=== PATIENT | male | born 1955 | race Caucasian/White ===

== ENCOUNTER 2020-04-27 18:43 | Emergency (ER) | payer OTHER, MEDICARE ==
[~2020-04-27] VITALS: Ht 162.6 cm; Wt 81.6 kg
[2020-04-27 19:00] VITALS: BP_SYST 160
[2020-04-27] MEDS ORDERED: DIPH-TET-PERTUS Vaccine 0.5 ML VIAL (ADACEL) I.M. ONE (20:00)
[2020-04-27] MEDS ORDERED: BACITRACIN 1 GM OINT TP ONE (20:00)
[2020-04-27] MEDS ORDERED: CIPROFLOXACIN HCL 500 MG TABLET PO ONE (20:00)
[2020-04-27 20:40] VITALS: BP_SYST 160
== END 2020-04-27 20:40 | disposition home or self-care (01) ==
LOC: SED 18:43
DX: S91.332A Puncture wound without foreign body, left foot, initial encounter (principal); Z87.891 Personal history of nicotine dependence; W22.8XXA Striking against or struck by other objects, initial encounter; Y93.89 Activity, other specified; Y92.69 Other specified industrial and construction area as the place of occurrence of the external cause; Y99.8 Other external cause status
CPT/HCPCS: 90715; 99283

== ENCOUNTER 2022-01-14 12:08 | Inpatient (IN) | payer OTHER, MEDICARE ==
[~2022-01-14] VITALS: Ht 170.2 cm; Wt 81.6 kg
[2022-01-14 12:15] VITALS: BP_SYST 165
--- NOTE | 2022-01-14 12:15 | NUR ---
Pt to bed 6 for evaluation.
--- NOTE | 2022-01-14 12:20 | NUR ---
pt presented to the er via ambulance, patient passed out at home and hit the left side of his upper face/left orbital/forehead. patient has had 3 syncopy spells since last friday when he had cataract removal surgery. pt denies any pain. has been fasting for past 16 days for sikh purposes. checked blood glucose 177. vs within normal limits. pt in bed resting comfortably with bed lowered and locked, rails up.
--- NOTE | 2022-01-14 12:20 | NUR ---
Report given to GREG Gutierrez who will assume care.
--- NOTE | 2022-01-14 13:02 | NUR ---
Dr Carty at pt bedside
[2022-01-14] MEDS ORDERED: DIPH-TET-PERTUS Vaccine 0.5 ML VIAL (ADACEL) I.M. ONE (13:15)
[2022-01-14] MEDS ORDERED: NACL 0.9% 1,000 ML IV ONE (13:15)
--- NOTE | 2022-01-14 13:21 | NUR ---
Portable CXR done at bedside.
--- NOTE | 2022-01-14 13:46 | NUR ---
pt taken to ct
--- NOTE | 2022-01-14 14:00 | NUR ---
Pt back from CT scan.
--- NOTE | 2022-01-14 14:15 | NUR ---
# 20 gauge angiocath placed to left hand. Use of asceptic technique. Opsite placed over site. Blood return noted. Blood for lab drawn from site. Flushed with 10 cc of normal saline. No evidence of infiltration noted. Patient tolerated well.
--- NOTE | 2022-01-14 14:18 | NUR ---
EKG done at bedside. Results to Dr. Velez for interpretation.
[2022-01-14 14:28] LABS: BASOPHILS % (AUTO) 0.2 % (0.0-2.0); EOSINOPHILS # (AUTO) 0.1 K/uL (0.0-0.4); EOSINOPHILS % (AUTO) 1.5 % (0.0-4.0); HEMATOCRIT 41.5 % (36-54); HEMOGLOBIN 14.6 g/dL (14.0-18.0); LYMPHOCYTES # (AUTO) 1.2 K/uL (1.0-5.5); MEAN CORPUSCULAR HEMOGLOBIN 31 pg (27-31); MEAN CORPUSCULAR HGB CONC 35 % (32-36); MEAN CORPUSCULAR VOLUME 88 fL (79.0-98.0); MONOCYTES # (AUTO) 0.8 K/uL (0.0-1.0); MONOCYTES % (AUTO) 8.3 % (1.7-9.3); NEUTROPHILS # (AUTO) 7.6 K/uL (1.8-7.7); PLATELET COUNT (AUTO) 199 K/uL (130-430); RED BLOOD CELL COUNT(AUTO) 4.73 MIL/uL (4.2-6.2); RED CELL DISTRIBUTION WIDTH 13.6 % (9.0-15.0); WHITE BLOOD COUNT (AUTO) 9.7 K/uL (4.8-10.8)
[2022-01-14 14:41] LABS: ANION GAP 8 (5-15); CALCIUM 9.7 mg/dL (8.4-11.0); CHLORIDE 101 mmol/L (98-107); CREATININE 1.17 mg/dL (0.55-1.30); GLUCOSE 134 mg/dL (70-99); POTASSIUM 3.6 mmol/L (3.5-5.1); SODIUM SERUM 137 mmol/L (136-145); UREA NITROGEN, BLOOD 26 mg/dL (8-21)
[2022-01-14 14:42] LABS: GFR AFRICAN AMERICAN 80 mL/min (>90)
[2022-01-14 14:50] LABS: ALANINE AMINOTRANSFERASE 38 U/L (12-78); ALBUMIN 3.8 g/dL (3.4-4.8); ASPARTATE AMINOTRANSFERASE 23 U/L (10-37); TOTAL BILIRUBIN 0.2 mg/dL (0.0-1.0)
--- NOTE | 2022-01-14 16:00 | NUR ---
Pt resting quietly in no distresss awaiting disposition. Pt does not want to be admitted. Physician and family attempting to convince him to stay for an MRI tomorrow. Pt is still deciding if he is going to stay for admission. Waiting for the patients decision.
[2022-01-14] MEDS ORDERED: IOHEXOL 350 mgI/mL, 150 ML INFUS..BTL IV ONE (17:54)
--- NOTE | 2022-01-14 17:59 | NUR ---
Admission orders received from Dr. Herrera. Pt to be admitted to Tele for TIA.
[2022-01-14] MEDS ORDERED: INSULIN REGULAR, HUMAN 100 UNITS/ML, 10 ML VIAL (humuLIN R) SUBCUT PRN (18:00)
--- NOTE | 2022-01-14 18:13 | NUR ---
Covid swab obtained and sent to lab for analysis.
[2022-01-14] MEDS ORDERED: ASPIRIN 325 MG TABLET PO ONE (18:15)
--- NOTE | 2022-01-14 18:30 | NUR ---
Pt to CT scan by nora.
[2022-01-14] MEDS: NACL 0.9% 1,000 ML IV SCH (18:34)
--- NOTE | 2022-01-14 18:34 | NUR ---
Admit bed requested Patient will be admitted to care of . Admitted to telemetry unit. Diagnosis tia Inpatient (Yes or No) yes Orientation concerns or request close to nursing station (Yes or No) no Covid Status pending From Home (Yes or if No enter name of facility) home
--- NOTE | 2022-01-14 18:38 | NUR ---
Pt back from CT scan.
--- NOTE | 2022-01-14 19:00 | NUR ---
Note marquitaone in EDM - 01/14/22 at 1901 by MALKA Admit bed requested Patient will be admitted to care of . Admitted to TELE unit. Diagnosis TIA Inpatient (Yes or No) YES Observation (Yes or No) NO Orientation concerns or request close to nursing station (Yes or No) NO Covid Status NEG On vent or bipap NO Isolation requirements NO Needs a sitter NO From Home (Yes or if No enter name of facility) YES Requires Dialysis (Yes or No) NO Med Rec Completed (Yes of No) YES
--- NOTE | 2022-01-14 19:02 | NUR ---
completed personal belogings list. pt only has navy blue sweat pants and white v-neck undershirt. all other belogings where sent home by patient with his
--- NOTE | 2022-01-14 19:25 | NUR ---
gave report to Everton GARZA
--- NOTE | 2022-01-14 19:44 | NUR ---
Patient will be admitted to care of DR. Admitted to unit. Will go to room . Belongings list completed. Complete and up to date summary report printed. SBAR report to be given at bedside with opportunity for questions.
[2022-01-14 19:52] VITALS: BP_SYST 158
--- NOTE | 2022-01-14 20:14 | NUR ---
THIS IS AN ADMISSION OF A 66 YEAR OLD FEMALE PATIENT OF DOCTOR MURPHY FOR TIA. HE WILL BE SEEN BY NEUROLOGY. OF NOTE WAS A RECENT PRE EXISTING PRE DIABETES, HYPERTENSION AND HYPERLIPIDEMIA PLUS A CATARACT SURGERY. CA KELLER RN
[2022-01-15 01:48] VITALS: BP_SYST 140
[2022-01-15] MEDS: NACL 0.9% 1,000 ML IV SCH ×2 (05:46→19:00)
--- NOTE | 2022-01-15 07:23 | NUR ---
Handoff with patient day team registered nurse, Juany. Edgar Tolbetr RN
[2022-01-15 08:00] VITALS: BP_SYST 161
[2022-01-15] MEDS ORDERED: DORZ10DR10 LEFT EYE (09:57)
[2022-01-15] MEDS ORDERED: BROM3DRO RIGHT EYE (09:57)
[2022-01-15] MEDS ORDERED: PREDEYE1% RIGHT EYE (09:57)
[2022-01-15] MEDS ORDERED: LOSA1TAB40 PO (09:57)
[2022-01-15] MEDS ORDERED: MOXI3DRO13 RIGHT EYE (09:57)
[2022-01-15] MEDS ORDERED: ROSU20TA32 PO (09:57)
[2022-01-15] MEDS ORDERED: ATORVASTATIN 20 MG TABLET PO ONE (11:15)
[2022-01-15 12:00] VITALS: BP_SYST 146
[2022-01-15] MEDS ORDERED: LOSARTAN POTASSIUM 50 MG TABLET (COZAAR) PO ONE (12:00)
[2022-01-15] MEDS ORDERED: HYDROCHLOROTHIAZIDE 25 MG TABLET (HCTZ) PO ONE (12:00)
[2022-01-15] MEDS: MOXIFLOXACIN OP SCH ×3 (12:25→21:33)
[2022-01-15] MEDS: PROLENSA OP SCH (12:26)
[2022-01-15] MEDS: prednisoLONE 1% OPHTHALMIC SUSPN 5 ML OP SCH ×3 (12:26→21:16)
[2022-01-15] MEDS: DORZOLAMIDE HCL/TIMOLOL MAL. 10 ML EYE DROPS (COSOPT) LEFT EYE SCH (12:27)
[2022-01-15] MEDS ORDERED: MOXIFLOXACIN HCL RIGHT EYE SCH (13:00)
[2022-01-15] MEDS ORDERED: prednisoLONE 1% OPHTHALMIC SUSPN 5 ML OP SCH (13:00)
--- NOTE | 2022-01-15 14:33 | NUR ---
Dietitian Recommendations [facility], Low Fat diet. Please refer to nutrition assessment for details. Signed: 01/15/22 at 1435 by Lillian MCKEON <Co-Signature Required> Co-Signed: 01/15/22 at [address] Addendum: 01/15/22 at 1435 by Lillian MCKEON Amended: Links added.
[2022-01-15 16:00] VITALS: BP_SYST 158
[2022-01-16] VITALS (8 sets, daily range): BP systolic 131–197
--- NOTE | 2022-01-16 07:20 | NUR ---
OPENING NOTE Patient awake and sitting at bedside eating breakfast. No sign of distress, patient denies pain. Patient wants to know when he will receive is MRI exam so that he can go home. Updated patient on his plan of care for the day. IV is patent and running prescribed fluids. All needs met at this time and safety checks made. Will continue to monitor.
--- NOTE | 2022-01-16 07:29 | NUR ---
CLOSING NOTES: END OF SHIFT REPORT TO INCOMING NURSE. PT ASLEEP IN BED, FACIAL EXPRESSIONS RE;AXED AND CALM, NO SIGNS OF DISTRESS, PAIN OR DISCOMFORT. ALL DUE MEDS GIVEN, NO ASE. BS AT THIS TIME 115. IV FLUIDS INFUSING NO OCCLUSION. ALL SAFETY AND COMFORT MEASURES PROVIDED.
[2022-01-16] MEDS: NACL 0.9% 1,000 ML IV SCH (07:46)
[2022-01-16] MEDS: prednisoLONE 1% OPHTHALMIC SUSPN 5 ML OP SCH ×3 (08:53→17:17)
[2022-01-16] MEDS: PROLENSA OP SCH (08:54)
[2022-01-16] MEDS: MOXIFLOXACIN OP SCH ×3 (08:55→17:18)
[2022-01-16] MEDS: DORZOLAMIDE HCL/TIMOLOL MAL. 10 ML EYE DROPS (COSOPT) LEFT EYE SCH (08:56)
[2022-01-16] MEDS ORDERED: ATORVASTATIN 20 MG TABLET PO SCH (09:00)
[2022-01-16] MEDS ORDERED: BROMFENAC SODIUM RIGHT EYE SCH (09:00)
[2022-01-16] MEDS ORDERED: DORZOLAMIDE HCL/TIMOLOL MAL. 10 ML EYE DROPS (COSOPT) LEFT EYE SCH (09:00)
[2022-01-16] MEDS ORDERED: LOSARTAN POTASSIUM 50 MG TABLET (COZAAR) PO SCH (09:00)
[2022-01-16] MEDS ORDERED: HYDROCHLOROTHIAZIDE 25 MG TABLET (HCTZ) PO SCH (09:00)
--- NOTE | 2022-01-16 10:02 | NUR ---
PATIENT LEFT FOR MRI Patient left room with preventative maintenance technician for MRI via wheelchair in stable condition.
--- NOTE | 2022-01-16 10:55 | NUR ---
BACK FROM MRI Patient is back in room. IV replaced and infusing prescribed fluids. Safety checks made, will continue to monitor.
[2022-01-16] MEDS ORDERED: ASPI-1393 PO (11:00)
--- NOTE | 2022-01-16 13:39 | NUR ---
Discharge Planning: DCP faxed pt referral to [facility] P#[phone] DCP to follow up. Addendum: 01/16/22 at 1454 by Neelima Hairston DP DCP followed with at [facility] P#[phone] pt accepted
--- NOTE | 2022-01-16 14:59 | NUR ---
SPOKE TO MD Spoke to Dr Herrera and informed him of the patient's increased blood pressure. MD gave new orders. Patient is ok to be discharged home after he receives his bilateral carotid US and his BP is lowered.
[2022-01-16] MEDS ORDERED: lisinopriL 20 MG TABLET PO ONE (15:00)
--- NOTE | 2022-01-16 15:48 | NUR ---
CHANGE PRN BP MEDS: SPOKE WITH DR MURPHY WITH ORDERS TO GIVE CLONIDINE 0.2MG PO ONCE FOR SBP>160.DC HOME IF BP WITHIN NORMAL RANGE. Addendum: 01/16/22 at 1551 by Liz Rivera RN ADDED NOTES: DC HOME IF CAROTID US IS NORMAL WELL.
[2022-01-16] MEDS ORDERED: cloNIDine HCL 0.1 MG TABLET PO ONE (16:00)
[2022-01-16] MEDS ORDERED: cloNIDine HCL 0.2 MG TABLET PO PRN (16:15)
--- NOTE | 2022-01-16 18:22 | NUR ---
SPOKE TO MD Reported to MD that patient's BP is still elevated, 159/92, heart rate 88. New orders received. MD stated to discharge patient once his BP is within normal limits.
[2022-01-16] MEDS ORDERED: hydrALAZINE HCL 20 MG/ML VIAL IVP ONE (18:30)
--- NOTE | 2022-01-16 18:47 | NUR ---
CLOSING NOTE Patient resting in bed with at bedside. Patient is aware he will be discharged once his blood pressure lowers. Patient denies chest pain or numbness in his extremities. Patient has been able to ambulate with steady gait to the restroom. Patient states that he has already made an appointment to see his physician this friday. All needs met at this time, safety checks made. Will endorse to night club manager nurse.
--- NOTE | 2022-01-16 19:20 | NUR ---
VERBAL REPORT RECEIVED FROM CRISTIAN WILDE. ENDORSED HYDRALAZINE 5MG TO BE GIVEN FOR ELEVATED B/P 197/105, 178/101, AND LAST B/P 159/92/ AT BEDSIDE. PT MAY BE DISCHARGED WHEN B/P WITHIN DESIRED LIMITS, PER DR. MURPHY WITH F/U APPT. IN 2 WEEKS.
--- NOTE | 2022-01-16 19:44 | NUR ---
B/P BEFORE HYDRALAZINE 5 MG GIVEN 167/84, HR 80.
--- NOTE | 2022-01-16 20:38 | NUR ---
DR. SHAH AND DR. MURPHY CONTACTED VIA PHONE FOR VERIFICATION OF DISCHARGE AND DISCHARGE ORDER WITH CURRENT B/P OF 139/76. DISCHARGED APPROVED WITH FOLLOW-UP APPT. WITH ALYSSA IN 2-3 WEEKS.
--- NOTE | 2022-01-16 21:15 | NUR ---
DISCHARGE ORDERS REVIEWED AND SIGNED WITH INTERPRETING. COPY GIVEN. HIGHLIGHTED FOLLOWUP MRI OUTPATIENT, AND FOLLOW-UP APPT. TO BE SCHEDULED WITH ALI FOR 2-3 WEEKS. AND PATIENT STATED UNDERSTOOD.
--- NOTE | 2022-01-16 21:26 | NUR ---
PT DISCHARGED VIA WHEEL CHAIR BY RICHAR. TRANSPORTED IN PRIVATE VEHICLE, ACCOMPANYING.
== END 2022-01-16 12:26 | disposition home health service (06) | DRG 74 ==
LOC: SED 12:08 → STU 17:56 → SMU 01-16 11:47
PROVIDERS: ADMIT General Practice; ATTEND General Practice
DX: G90.8 Other disorders of autonomic nervous system (principal); G45.9 Transient cerebral ischemic attack, unspecified; E78.5 Hyperlipidemia, unspecified; I10 Essential (primary) hypertension; M47.812 Spondylosis without myelopathy or radiculopathy, cervical region; Z20.822 Contact with and (suspected) exposure to COVID-19; R79.89 Other specified abnormal findings of blood chemistry; M46.02 Spinal enthesopathy, cervical region; Z87.891 Personal history of nicotine dependence
CPT/HCPCS: 36415; 70450-TC; 70496; 70498; 71045; 72141; 76376; 80053; 82962; 84484; 85025; 93005; 93880; 96360; 99291; G0378; J0360; J1815; Q9967